=== PATIENT | female | born 1950 | race African-American/Black ===

== ENCOUNTER 2019-07-18 12:58 | Inpatient (IN) | payer OTHER | END 2019-07-19 18:36 | disposition left against medical advice (07) | LOC: JER 12:58 → JERBED 17:03 → J4W 21:31 ==

== ENCOUNTER 2019-11-15 16:48 | Emergency (ER) | payer OTHER ==
[2019-11-15 17:18] VITALS: BP 147/70; PULSE 102; TEMP 98; BMI 29.6
--- NOTE | 2019-11-15 17:21 | PDOC ---
History of Present Illness - General Chief Complaint: Constipation Stated Complaint: CONSTIPATION Time Seen by Provider: 11/15/19 17:19 - History of Present Illness Initial Comments: 11/15/19 17:20 69 yo F PMH hypothyroidism, COPD, HLD, ESRD4 on HD via permacath , , Sa at [facility] on [address] in [place] (went today), presenting with constipation. States that she has not had a bowel movement in three days. Feels burning rectal pain and states that she feels like "something is stuck". Notes in the past, she has had similar symptoms and responded at that time with Miralax. Does not have Miralax at home. Tried manual impaction yesterday without success. Tried an enema today with passage of some stool, but states that "something is still stuck up there" and "I need relief". Denies rectal bleeding, urinary symptoms, CP, SOB, N/V, [place], diarrhea, recent travel, recent illness. Past History - Past Medical History Allergies/Adverse Reactions: Allergies Allergy/AdvReac Type Severity Reaction Status Date / Time lactulose Allergy Verified 11/15/19 17:13 oxybutynin Allergy Verified 11/15/19 17:13 shellfish derived Allergy Verified 11/15/19 17:13 Home Medications: Ambulatory Orders Albuterol Sulfate Inhaler - [Ventolin HFA Inhaler -] 1 puff PO PRN 07/18/19 Budesonide/Formeterol Fumarate [SYMBICORT 160/4.5mcg -] 2 puff PO BID 07/18/19 Cyanocobalamin [Vitamin B12 -] 1 tab PO DAILY 07/18/19 Gabapentin [Neurontin] 300 cap PO HS 07/18/19 Insulin Glargine,Hum.rec.anlog [Lantus Solostar] 10 unit SQ HS 07/18/19 Levothyroxine [Synthroid -] 100 mcg PO DAILY 07/18/19 Multivit-Min/Folic Acid/Biotin [Women Multivit W-Biotin Gummy] 1 unit PO DAILY 07/18/19 Simvastatin 10 mg PO HS 07/18/19 Tiotropium [place] [Spiriva] 1 puff PO DAILY 07/18/19 Magnesium Citrate [Citroma -] 150 ml PO BID #1 bottle 11/15/19 Polyethylene Glycol 3350 [Miralax (For Bowel Prep) -] 17 gm PO DAILY #1 bottle 11/15/19 COPD: No Diabetes: Yes Dialysis: Yes (right chest portacath) HTN: Yes Hypercholesterolemia: Yes Thyroid Disease: Yes - Psycho Social/Smoking Cessation Hx Smoking History: Never smoked Have you smoked in the past 12 months: Yes Number of Cigarettes Smoked Daily: 7 Information on smoking cessation initiated: No Hx Alcohol Use: No Drug/Substance Use Hx: No Review of Systems - Review of Systems Comments:: 11/15/19 18:34 GENERAL/CONSTITUTIONAL: No fever or chills. No weakness. HEAD, EYES, EARS, NOSE AND THROAT: No change in vision. No ear pain or discharge. No sore throat. CARDIOVASCULAR: No chest pain or shortness of breath. RESPIRATORY: No cough, wheezing, or hemoptysis. GASTROINTESTINAL: No nausea, vomiting, or diarrhea. Significant constipation with burning rectal pain. GENITOURINARY: No dysuria, frequency, or change in urination. MUSCULOSKELETAL: No joint or muscle swelling or pain. No neck or back pain. SKIN: No rash NEUROLOGIC: No headache, vertigo, loss of consciousness, or change in strength/ sensation. ENDOCRINE: No increased thirst. No abnormal weight change. HEMATOLOGIC/LYMPHATIC: No anemia, easy bleeding, or history of blood clots. ALLERGIC/IMMUNOLOGIC: No hives or skin allergy *Physical Exam - Vital Signs Last Vital Signs Temp Pulse Resp BP Pulse Ox 98 F 102 H 19 147/70 96 11/15/19 17:10 11/15/19 17:10 11/15/19 17:10 11/15/19 17:10 11/15/19 17:10 - Physical Exam 11/15/19 18:35 Gen: well-developed, well-nourished, NAD Neuro: AAOX4, CN II-XII intact, FTN intact, EOMI, PERRLA, 5/5 strength, SILT HEENT: atraumatic, normocephalic, dry mucous membranes Neck: trachea midline, supple CV: tachycardic to low 100s, regular rhythm, no murmurs, rubs, or gallops Pulm: diffuse wheezing Abd: obese, soft, non-distended, non-tender, vertical surgical scar above umbilicus Rectal: copious light brown stool around anus, no fissures or hemorrhoids MSK: full ROM, intact pulses Extr: no edema, no deformities Skin: warm, dry Vascular Pulses: Femoral (R): 4+, Femoral (L): 4+, Carotid (R): 4+, Carotid (L) : 4+, Dorsalis-Pedis (R): 4+, Doralis-Pedis (L): 4+ Medical Decision Making - Medical Decision Making 11/15/19 18:39 69 yo F presenting with constipation. Has had in the past, responded to Miralax at that time. - Will give PO Miralax - Fleet enema - Mag citrate - reassess - likely dc with mag citrate and Miralax 11/15/19 21:46 Received Miralax, mag citrate, fleet enema. Starting to have significant stooling. Will send Miralax and Mag citrate to pharmacy, dc for further outpatient management. Discharge - Discharge Information Problems reviewed: Yes Clinical Impression/Diagnosis: Constipation Condition: Improved Disposition: HOME - Admission No - Additional Discharge Information Prescriptions: Magnesium Citrate [Citroma -] 150 ml PO BID #1 bottle Polyethylene Glycol 3350 [Miralax (For Bowel Prep) -] 17 gm PO DAILY #1 bottle - Follow up/Referral Referrals: John Arrington MD [Primary Care Provider] - - Patient Discharge Instructions Patient Printed Discharge Instructions: Increased Dietary Fiber May Improve Constipation Conditions With Pelvic Grupo, DI for Constipation Additional Instructions: You were seen with constipation. This improved with medication. However, it is important that you get on a bowel regimen. We have sent magnesium citrate and Miralax to your pharmacy, please take as needed. Make sure you eat a high fiber diet. Follow up with your primary care doctor within one week. Return to the ED if you develop worsening symptoms. - Post Discharge Activity
[2019-11-15] MEDS ORDERED: POLYETHYLENE GLYCOL 3350 119 GM BTL PO ONE (18:16)
[2019-11-15] MEDS ORDERED: MAGNESIUM CITRATE 300 ML BOTTLE PO ONE (18:59)
[2019-11-15] MEDS ORDERED: SODIUM PHOSPHATE/NA BIPHOS 133 ML ENEMA PR ONE (18:59)
--- NOTE | 2019-11-15 19:09 | PDOC ---
Attending Attestation - Resident Resident Name: Reginald Coreas - ED Attending Attestation I have performed the following: I have examined & evaluated the patient, The case was reviewed & discussed with the resident, I agree w/resident's findings & plan, Exceptions are as noted - HPI HPI: 11/15/19 19:06 69 yo COPD, HLD, ESRD ( tRS) last dialysis today, here with c/o constipation. pt stats she was schedule to see her GI doctor today Estela, but wasn't feeling well so came to ED. took miralax no relief. last BM 3 dasy ago. c/o rectal pain with trying to stool. no n/f does have h/o prior abd surgery but denies abd pain. no nv still passin martin. tried enema at home no relief. - Physicial Exam PE: 11/15/19 19:08 awake alert lungs clear bilat heart rr no mrg abd soft nt nd. ext wwp. - Medical Decision Making 11/15/19 19:08 69yo F here with constipation, plan enema, rectal exam, mag citrate, reassess. recommend reschedule appt with estela for fu. colonoscopy.
[2019-11-15] MEDS ORDERED: ALBUTEROL SO4 2.5/IPRATROPIUM 0.5 INH SOL 3 ML VIAL.NEB. NEB ONE ×2 (19:19→20:18)
[2019-11-15] MEDS ORDERED: MAGNESIUM CITRATE 300 ML BOTTLE ONE (20:19)
== END 2019-11-15 23:09 | disposition home or self-care (01) ==
LOC: JER 16:48
DX: K59.00 Constipation, unspecified (principal); I12.0 Hypertensive chronic kidney disease with stage 5 chronic kidney disease or end stage renal disease; E11.22 Type 2 diabetes mellitus with diabetic chronic kidney disease; N18.6 End stage renal disease; N17.8 Other acute kidney failure; Z99.2 Dependence on renal dialysis; Z79.4 Long term (current) use of insulin; E03.9 Hypothyroidism, unspecified; Z91.013 Allergy to seafood; Z88.8 Allergy status to other drugs, medicaments and biological substances
CPT/HCPCS: 99283-25

== ENCOUNTER 2021-04-01 19:19 | Emergency (ER) | payer OTHER ==
[2021-04-01 19:47] VITALS: BMI 26.4
[2021-04-01] MEDS ORDERED: PANTOPRAZOLE SODIUM 40 MG VIAL IVPUSH ONE (20:15)
[2021-04-01] MEDS ORDERED: LACTATED RINGERS SOLUTION 1000 ML INFUS.BAG IV STA (20:15)
[2021-04-01] MEDS ORDERED: ACETAMINOPHEN 1000 MG/100 ML VIAL (NON FORMULARY) IVPB ONE (20:16)
[2021-04-01] MEDS ORDERED: ACETAMINOPHEN INJECTION 100 ML IVPB ONE (20:48)
[2021-04-01] MEDS ORDERED: PANTOPRAZOLE SODIUM 40 MG VIAL ONE (20:49)
[2021-04-01 21:26] LABS: BASO % 1.1 % (0-2.0); EOS % 2.6 % (0-4.5); HEMATOCRIT 25.6 % (32.4-45.2); HEMOGLOBIN 8.2 GM/dL (10.7-15.3); LYMPH % 22.1 % (8-40); MCH 29.7 pg (25.7-33.7); MCHC 32.1 g/dl (32.0-36.0); MEAN CELL VOLUME 92.6 fl (80-96); MEAN PLT VOLUME 9.9 fl (7.5-11.1); MONO % 7.8 % (3.8-10.2); NEUT % 66.4 % (42.8-82.8); PLATELET COUNT 245 K/MM3 (134-434); RBC 2.77 M/mm3 (3.60-5.2); RDW 14.7 % (11.6-15.6); WHITE BLOOD COUNT 6.1 K/mm3 (4.0-10.0)
[2021-04-01 21:36] LABS: INR 1.26 (0.83-1.09); PROTHROMBIN TIME (PATIENT) 15.2 SEC (9.7-13.0)
[2021-04-01 21:38] LABS: ACTIVATED PTT 28.9 SECONDS (25.2-36.5)
[2021-04-01 22:04] LABS: BLOOD UREA NITROGEN 30.7 mg/dL (7-18); CALCIUM 8.1 mg/dL (8.5-10.1)
[2021-04-01 22:05] LABS: ALBUMIN 2.3 g/dl (3.4-5.0); MAGNESIUM 1.5 mg/dL (1.8-2.4)
[2021-04-01 22:07] LABS: CREATININE 5.2 mg/dL (0.55-1.3); PHOSPHOROUS 4.3 mg/dL (2.5-4.9)
[2021-04-01 22:08] LABS: BILIRUBIN,TOTAL 0.4 mg/dL (0.2-1); TOT PROT 6.4 g/dl (6.4-8.2)
[2021-04-02 02:23] VITALS: PULSE 64; TEMP 98.7
[2021-04-02 04:22] VITALS: BP 135/55
== END 2021-04-02 04:22 | disposition short-term general hospital (02) ==
LOC: JER 19:19
PROC: 3E0333Z Introduction of Anti-inflammatory into Peripheral Vein, Percutaneous Approach (ICD-10-PCS; principal; 2021-04-01)
PROC: 3E033GC Introduction of Other Therapeutic Substance into Peripheral Vein, Percutaneous Approach (ICD-10-PCS; 2021-04-01)
DX: K56.609 Unspecified intestinal obstruction, unspecified as to partial versus complete obstruction (principal); K63.89 Other specified diseases of intestine; K92.2 Gastrointestinal hemorrhage, unspecified
CPT/HCPCS: 36415; 70450-TC; 71250-TC; 72125-TC; 74175-TC; 74176-TC; 80053; 82272; 82550; 83605; 83690; 83735; 84100; 84484; 85025; 85610; 85730; 86850; 86900; 86901; 93005; 93010; 99291; 99292; C9803; J0131; U0003; U0005